=== PATIENT | female | born 1980 | race Caucasian/White ===

== ENCOUNTER 2024-12-17 09:58 | Emergency (ER) | payer OTHER, SELFPAY ==
[2024-12-17 10:07] VITALS: BP 105/81; PULSE 75; RESP 16; TEMP 36.1; O2SAT 98
--- NOTE | 2024-12-17 10:07 | ED_ITS ---
HPI - Eye Problem General Chief complaint: Eye Problems Stated complaint: left eye irritation Time Seen by Provider: 12/17/24 10:10 Source: patient Mode of arrival: ambulatory Limitations: no limitations History of Present Illness HPI Narrative: 44 y/o female presented for c/o left eye redness and pain. Onset 399. Says she removed her contact lenses at that time due to bilateral eye pressure from nasal congestion. Since then the eye continued to have drainage which started clear and turned green and yellow. Endorses mild light sensitivity and vision is blurry. Pt wears contact lenses overnight, which are dailies, but she had them in for 4 days. Denies eye injury or FB. MD chief complaint: eye pain Related Data Home Medications ?Medication ?Instructions ?Recorded ?Confirmed ?Last Taken ?Type bupropion HCl 300 mg 24 hr tablet, 300 mg PO QAM 09/09/23 12/17/24 Unknown History extended release (Wellbutrin XL) clonazepam 1 mg tablet 1 mg PO QHS 09/09/23 12/17/24 Unknown History lamotrigine 150 mg tablet 150 mg PO DAILY 09/09/23 12/17/24 Unknown History (Lamictal) lisdexamfetamine 50 mg capsule 50 mg PO DAILY 09/09/23 12/17/24 Unknown History (Vyvanse) spironolactone 100 mg tablet 100 mg PO BID 09/09/23 12/17/24 Unknown History aripiprazole 2 mg tablet (Abilify) 2 mg PO DAILY 06/06/24 12/17/24 Unknown History minoxidil 2.5 mg tablet 5 mg PO DAILY 06/06/24 12/17/24 Unknown History duloxetine 60 mg capsule,delayed mg PO 12/17/24 Unknown History release iud 12/17/24 Unknown History multivitamin 12/17/24 Unknown History propranolol 20 mg tablet mg 12/17/24 Unknown History Allergies Allergy/AdvReac Type Severity Reaction Status Date / Time iodine Allergy Mild Hives / Verified 12/17/24 10:02 Red Face codeine AdvReac Mild Nausea and Verified 12/17/24 10:02 Vomiting Review of Systems Review of Systems: CONSTITUTIONAL: Denies body aches, fever, chills EYES:Endorses redness and pain to left eye; Denies visual changes, FB sensation ENT: Denies rhinorrhea, congestion, sore throat, or otalgia. CARDIOVASCULAR: Denies chest pain, palpitations RESPIRATORY: Denies cough or dyspnea. GASTROINTESTINAL: Denies abdominal pain, nausea, vomiting, or diarrhea. SKIN: Denies rash, itching, or wounds. MUSCULOSKELETAL: Denies back pain, joint pain, or myalgia. NEUROLOGIC: Denies headache, numbness, tingling, or weakness. All systems reviewed & are unremarkable except as noted in HPI and below PMFSH Past Medical History Medical History History of stomach ulcers Disorder of thyroid Seizures BLAZE on CPAP Hyperlipidemia, unspecified Migraine Headache Chronic GERD Anxiety Asthma Allergies Surgical History Surgical History H/O foot surgery H/O: History of tonsillectomy Family History Family History Father History of ETOH abuse Asthma Lung cancer Depression Anxiety Mother History of ETOH abuse Asthma Diabetes mellitus Depression Anxiety Disorder of thyroid Sibling History of ETOH abuse Breast cancer Grandparent History of ETOH abuse Heart disease Cerebrovascular accident Grandparent History of ETOH abuse Heart disease Cerebrovascular accident Social History Social History Smoking status: Never smoker Alcohol use details: Does not drink Substance use type: does not use Do You Feel Safe in your Home?: Yes Lack of Transportation: No Lack of Food: Never True Current Housing: I Have Housing Concerned About Future Housing: No Difficulty Paying Gas/Electric Bills: No Difficulty Paying for Meds: No Currently Unemployed: No Education: Bachelor's Degree Difficulty w/ Childcare or Family Care: No Living arrangements: with family 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 Please see nursing chart for further information. There is no relevant family history pertinent to the presenting complaint Exam Narrative: GENERAL: Well-appearing HEAD: Normocephalic, atraumatic. EYES: Left conjunctival injection, mild eye lid swelling and drainage. PERRLA, EOMI. Lid eversion shows no FB. No corneal abrasion or ulcer with miller lamp exam. ENT: Mucous membranes pink and moist. No rhinorrhea. TMs normal bilaterally. Throat normal. Uvula midline. SKIN: Warm, dry, no rash. Normal skin turgor. NEURO: No focal deficits. Alert and oriented x3 PSYCH: Normal affect. Course Course Emergency Course: Patient is aware of diagnosis, understands and agrees to treatment plan. Anticipatory guidance given. Patient agrees to follow-up as directed and is aware of reasons to seek care at the emergency department. Portions of this record may have been created with voice recognition software Level of Care: Express Care Visit Procedures FB Removal Eye Foreign Body #1: Location: eye (L) Topical anesthetic used: tetracaine Evidence of corneal penetration: No Technique: irrigation and eye wash bottle Procedure performed under: other (miller lamp ) Patient tolerated procedure: well and no complications Foreign Body Removal Narrative: left Eye was anesthetized with 1 drop of tetracaine and anesthesia was achieved. Lid was everted and examined for foreign body. No foreign body, corneal abrasion, or ulceration identified with Miller lamp. The eye was flushed with eye wash. Pt tolerated procedure well. MDM - Eye Problem MDM Narrative Medical decision making narrative: Discussed physical exam findings c/w bacterial conjunctivitis; no corneal abrasion or ulcer on exam. Advised supportive measures and signs/symptoms to go to the ER. Pt is appropriate for outpt treatment and f/u. Differential Diagnosis Differential diagnosis: Likely corneal abrasion, conjunctivitis, acute iritis, periorbital cellulitis, corneal ulcer and other Discharge Plan Discharge Clinical Impression: Bacterial conjunctivitis Patient Disposition: Home Condition: Stable Instructions: Antibiotic Form, Conjunctivitis (ED) Additional Instructions: Avoid touching or rubbing your eye. Use over the counter lubricating eye drops as needed for irritation Use a warm or cool washcloth on your eye for comfort Use eyedrops as directed - you are contagious for 24 hours after starting the antibiotic Practice good handwashing and hygiene to prevent spread of infection Do not wear the contact lenses. Use a new pair after the infection is resolved. Use new makeup, lashes etc. You may take Tylenol or ibuprofen for pain Recommend Flonase spray and Zyrtec (or Claritin/Monica) over the counter Cough syrup may cause drowsiness; avoid driving or take it at night time. Tylenol 1000mg every 8 hours as needed for pain Symptomatic treatment includes: rest, fluids, and increase humidity of the air at home. Follow-up with filler shredder helper if condition is not improving in 2 days. Go to the emergency room if you have severe pain or pressure behind your eye, difficulty seeing, or other severe symptoms Patient Language: Marshallese Prescriptions: New ofloxacin 0.3 % drops See Rx Instructions .ROUTE .COMPLEX Qty: 10 0RF Rx Instructions: put 2 drops into left every 4 hours for 2 days, then 2 drops 4 times a day days 3-7 amoxicillin-pot clavulanate 875-125 mg tablet 1 tablet PO Q12H 7 Days Qty: 14 0RF No Action propranolol 20 mg tablet duloxetine 60 mg capsule,delayed release(DR/EC) PO iud multivitamin lamotrigine [Lamictal] 150 mg tablet 150 mg PO DAILY bupropion HCl [Wellbutrin XL] 300 mg tablet extended release 24 hr 300 mg PO QAM spironolactone 100 mg tablet 100 mg PO BID lisdexamfetamine [Vyvanse] 50 mg capsule 50 mg PO DAILY clonazepam 1 mg tablet 1 mg PO QHS Rx Instructions: administer 30 minutes before bedtime aripiprazole [Abilify] 2 mg tablet 2 mg PO DAILY metformin 500 mg tablet extended release 24 hr 500 mg PO DAILY Qty: 90 1RF minoxidil 2.5 mg tablet 5 mg PO DAILY albuterol sulfate [Ventolin HFA] 90 mcg/actuation HFA aerosol inhaler 1 inh inhalation Q4H PRN (Reason: shortness of breath or wheezing) Qty: 8.5 1RF levothyroxine 175 mcg tablet See Rx Instructions .ROUTE .COMPLEX Qty: 90 3RF Dose Instruction: TAKE 1 TABLET BY MOUTH EVERY DAY Rx Instructions: TAKE 1 TABLET BY MOUTH EVERY DAY Zepbound 2.5 mg/0.5 mL pen injector 2.5 mg subcut WEEKLY Qty: 2 0RF Rx Instructions: for 4 weeks Follow-up/Referrals: Consuelo Vides APRN [Primary Care Provider] - Time of Disposition: 10:40
== END 2024-12-17 10:40 | disposition home or self-care (01) ==
PROVIDERS: Emergency Provider Nurse Practitioner Family; PCP Nurse Practitioner Adult Health
DX: H10.9 Unspecified conjunctivitis (principal); G40.909 Epilepsy, unspecified, not intractable, without status epilepticus; G47.33 Obstructive sleep apnea (adult) (pediatric); E78.5 Hyperlipidemia, unspecified; K21.9 Gastro-esophageal reflux disease without esophagitis; J45.909 Unspecified asthma, uncomplicated; F41.9 Anxiety disorder, unspecified
CPT/HCPCS: 99213; A9270; G0463

== ENCOUNTER 2025-06-19 18:11 | Emergency (ER) | payer OTHER, SELFPAY ==
[2025-06-19 18:18] VITALS: BP 112/81; PULSE 88; RESP 20; TEMP 36.4; O2SAT 97
--- NOTE | 2025-06-19 18:39 | ED.SKABFB ---
HPI - Skin/Abscess/Foreign Bdy General Chief complaint: Skin/Abscess/Foreign Body Stated complaint: moisture rash Time Seen by Provider: 06/19/25 18:40 Source: patient and RN notes reviewed Mode of arrival: ambulatory Limitations: no limitations History of Present Illness HPI narrative: 45-year-old female presents with concern for a rash under her abdominal fold. She reports she struggles with that area, she works hard to keep it dry. She usually uses powder. Reports she got a small rash that is now gotten much larger, is very itchy and is excoriated and irritated. She reports it has been there for 2 weeks. She has been using an [id number] treatment without relief MD complaint: rash Related Data Home Medications ?Medication ?Instructions ?Recorded ?Confirmed ?Last Taken ?Type bupropion HCl 300 mg 24 hr tablet, 300 mg PO QAM 09/09/23 12/17/24 Unknown History extended release (Wellbutrin XL) lamotrigine 150 mg tablet 150 mg PO DAILY 09/09/23 12/17/24 Unknown History (Lamictal) aripiprazole 2 mg tablet (Abilify) 2 mg PO DAILY 06/06/24 12/17/24 Unknown History duloxetine 60 mg capsule,delayed mg PO 12/17/24 Unknown History release iud 12/17/24 Unknown History multivitamin 12/17/24 Unknown History Allergies Allergy/AdvReac Type Severity Reaction Status Date / Time iodine Allergy Mild Hives / Verified 06/19/25 18:23 Red Face codeine AdvReac Mild Nausea and Verified 06/19/25 18:23 Vomiting Review of Systems Review of Systems: CONSTITUTIONAL: Denies malaise, chills, sweats, or fever. ENT: Denies rhinorrhea, congestion, swollen lips, swollen tongue SKIN: Reports itchy rash excoriated rash under her abdominal fold All systems reviewed & are unremarkable except as noted in HPI and below PMFSH Past Medical History Medical History History of stomach ulcers Disorder of thyroid Seizures BLAZE on CPAP Hyperlipidemia, unspecified Migraine Headache Chronic GERD Anxiety Asthma Allergies Surgical History Surgical History H/O foot surgery H/O: History of tonsillectomy Family History Family History Father History of ETOH abuse Asthma Lung cancer Depression Anxiety Mother History of ETOH abuse Asthma Diabetes mellitus Depression Anxiety Disorder of thyroid Sibling History of ETOH abuse Breast cancer Grandparent History of ETOH abuse Heart disease Cerebrovascular accident Grandparent History of ETOH abuse Heart disease Cerebrovascular accident Social History Social History Smoking status: Never smoker Alcohol use details: Does not drink Substance use type: does not use Lack of Transportation: No Lack of Food: Never True Current Housing: I Have Housing Concerned About Future Housing: No Difficulty Paying Gas/Electric Bills: No Difficulty Paying for Meds: No Currently Unemployed: No Education: Bachelor's Degree Difficulty w/ Childcare or Family Care: No Living arrangements: with family 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 There is no relevant family history pertinent to the presenting complaint Exam Narrative: GENERAL: Well-appearing, well-nourished, and in no acute distress. HEAD: Normocephalic, atraumatic. EYES: PERRLA, conjunctivae clear, and EOMI. ENT: Mucous membranes moist. Oropharynx without edema, erythema or lesions. NECK: Supple. No lymphadenopathy CHEST: Clear to auscultation. No respiratory distress. HEART: Regular rate and rhythm. SKIN: Warm, dry. Large patches of excoriated skin with satellite papules noted under the abdominal fold NEURO: Alert and oriented x3. PSYCH: Normal mood and affect Course Course Emergency Course: Patient is aware of diagnosis, understands and agrees to treatment plan. Anticipatory guidance given. Patient agrees to follow-up as directed and is aware of reasons to seek care at the emergency department. Portions of this record may have been created with voice recognition software Level of Care: Express Care Visit Vital Signs Vital signs: Vital Signs Temperature 97.5 F L 06/19/25 18:18 Pulse Rate 88 06/19/25 18:18 Respiratory Rate 20 06/19/25 18:18 Blood Pressure 112/81 06/19/25 18:18 Pulse Oximetry 97 06/19/25 18:18 Oxygen Delivery Room Air 06/19/25 18:18 Temperature 97.5 F L 06/19/25 18:18 Pulse Rate 88 06/19/25 18:18 Respiratory Rate 20 06/19/25 18:18 Blood Pressure 112/81 06/19/25 18:18 Pulse Oximetry 97 06/19/25 18:18 Oxygen Delivery Room Air 06/19/25 18:18 MDM Differential Diagnosis Differential Diagnosis: I evaluated this patient in the [facility] care. History is obtained from patient who is an independent historian and physical exam was performed.? Available medical records were reviewed. ? Exam findings and relevant testing show no acute concerns or changes; patient is non-toxic appearing and is in no distress. ? Does not appear at this time to be erythema multiforme, bullous, SJS, TEN; no evidence at this time to suggest RMSF, endocarditis or Lyme disease; patient looks well, nontoxic and is tolerating oral intake; no neurologic signs or symptoms; no headache, photophobia or neck pain; afebrile; appropriate for initial outpatient treatment; discussed the importance of follow-up, patient agrees; question, viral exanthema, contact dermatitis, allergic dermatitis, eczema, urticaria, tinea. No soft palate or uvula edema, no tongue, lip edema or other mucosal involvement, no respiratory compromise, no stridor, no wheezing, no wheezing, no history of syncope, no hypotension, no nausea, vomiting, or diarrhea. Instructed patient to go to nearest ER immediately for any worsening symptoms including but not limited to: fever, spreading rash, pain, sore throat, headache, dizziness, chest pain, trouble breathing, or any symptoms concerning to the patient. Differential diagnosis and treatment plan were discussed with the patient. Patient agrees with discussion and after shared medical decision making agrees with plan of care. All questions were answered to the patient's satisfaction. Patient is appropriate for outpatient treatment and follow-up. Discharge Plan Discharge Clinical Impression: Skin yeast infection Patient Disposition: Home Condition: Stable Instructions: Antibiotic Form, Skin Yeast Infection (ED) Additional Instructions: Wash the area with gentle soap and water only. Pat dry thoroughly Use skin cream as prescribed Avoid scratching when possible to prevent worsening of the condition and disruption of the skin that could lead to bacterial infection To relieve itching, place a cool washcloth or some ice over the area that itches, rather than scratching Follow up with primary care provider or seek ER if you have trouble breathing, become hoarse, or start wheezing, develop belly cramps, vomiting or feel dizzy. Patient Language: Bengali Prescriptions: New fluconazole 150 mg tablet 150 mg PO Q48H 3 Days Qty: 2 0RF Rx Instructions: take one dose now, and a second dose if symptoms remain in 48 hours clotrimazole-betamethasone 1-0.05 % cream 1 applic TOPICAL BID 28 Days Qty: 45 1RF No Action duloxetine 60 mg capsule,delayed release(DR/EC) PO iud multivitamin lamotrigine [Lamictal] 150 mg tablet 150 mg PO DAILY bupropion HCl [Wellbutrin XL] 300 mg tablet extended release 24 hr 300 mg PO QAM aripiprazole [Abilify] 2 mg tablet 2 mg PO DAILY metformin 500 mg tablet extended release 24 hr 500 mg PO DAILY Qty: 90 1RF albuterol sulfate [Ventolin HFA] 90 mcg/actuation HFA aerosol inhaler 1 inh inhalation Q4H PRN (Reason: shortness of breath or wheezing) Qty: 8.5 1RF levothyroxine 175 mcg tablet See Rx Instructions .ROUTE .COMPLEX Qty: 90 3RF Dose Instruction: TAKE 1 TABLET BY MOUTH EVERY DAY Rx Instructions: TAKE 1 TABLET BY MOUTH EVERY DAY Wegovy 2.4 mg/0.75 mL pen injector 2.4 mg subcut WEEKLY Qty: 3 3RF spironolactone 100 mg tablet 100 mg PO BID Qty: 180 3RF minoxidil 2.5 mg tablet 5 mg PO DAILY Qty: 90 3RF Follow-up/Referrals: Consuelo Vides APRN [Primary Care Provider, [facility]] Time of Disposition: 18:51
--- OUTSIDE RECORDS SUMMARY | 2025-06-19 19:14 | XMS_ITS | Clinical Summary ---
Author Organization [facility] [address] Address [address] [place] [address] Care Team Providers Care Room Worker Name Role Phone Consuelo Vides Primary Care Provider Allergies No known active allergies Medications ARIPiprazole (ABILIFY) 2 mg tablet Take 1 Tablet (2 mg) by mouth daily in the morning for depression. 30 Tablet 12/01/2024 12:19 PM CDT 5 Active buPROPion HCL (WELLBUTRIN XL) 300 mg Extended Release 24 hour tablet Take 1 Tablet (300 mg) by mouth daily in the morning. 30 Tablet 2 12/01/2024 12:19 PM CDT 5 Active DULoxetine (Cymbalta) 60 mg Capsule, Delayed Release(E.C.) Take 1 Capsule (60 mg) by mouth daily in the morning for depression. 30 Capsule 1 12/01/2024 12:19 PM CDT 5 Active lamoTRIgine (LaMICtal) 150 mg tablet Take 1 Tablet (150 mg) by mouth 2 times daily with meals. 60 Tablet 2 5 Active propranoloL (INDERAL) 20 mg tablet Take 1 Tablet (20 mg) by mouth 2 times daily with meals for anxiety. 60 Tablet 2 12/01/2024 12:19 PM CDT 5 Active buPROPion HCL (WELLBUTRIN XL) 300 mg Extended Release 24 hour tablet Take 1 Tablet (300 mg) by mouth daily in the morning. 30 Tablet 2 5 Active DULoxetine (Cymbalta) 60 mg Capsule, Delayed Release(E.C.) Take 1 Capsule (60 mg) by mouth daily in the morning for depression. 30 Capsule 1 5 Active lamoTRIgine (LaMICtal) 150 mg tablet Take 1 Tablet (150 mg) by mouth 2 times daily with meals. 60 Tablet 2 12/05/2024 1:02 PM CDT 5 Active propranoloL (INDERAL) 20 mg tablet Take 1 Tablet (20 mg) by mouth 2 times daily with meals for anxiety. 60 Tablet 2 5 Active ARIPiprazole (ABILIFY) 2 mg tablet Take 1 Tablet (2 mg) by mouth daily in the morning for depression. 30 Tablet 5 Active clonazePAM (KlonoPIN) 1 mg tablet Take 1 Tablet (1 mg) by mouth 3 times daily with meals. 90 Tablet 2 12/05/2024 1:02 PM CDT 5 Active ARIPiprazole (ABILIFY) 2 mg tablet Take 1 Tablet (2 mg) by mouth daily in the morning for depression. 30 Tablet 5 Active propranoloL (INDERAL) 20 mg tablet Take 1 Tablet (20 mg) by mouth 2 times daily for anxiety. 60 Tablet 2 5 Active DULoxetine (Cymbalta) 60 mg Capsule, Delayed Release(E.C.) Take 1 Capsule (60 mg) by mouth daily in the morning for depression. 30 Capsule 1 5 Active buPROPion HCL (WELLBUTRIN XL) 300 mg Extended Release 24 hour tablet Take 1 Tablet (300 mg) by mouth daily in the morning. 30 Tablet 2 5 Active lisdexamfetamin e (VYVANSE) 50 mg capsule Take 1 Capsule (50 mg) by mouth daily in the morning for ADHD. Max Daily Amount: 50 mg 30 Capsule 5 Active ARIPiprazole (ABILIFY) 2 mg tablet Take 1 Tablet (2 mg) by mouth daily in the morning for depression. 30 Tablet 5 Active propranoloL (INDERAL) 20 mg tablet Take 1 Tablet (20 mg) by mouth 2 times daily with meals for anxiety 60 Tablet 2 5 Active lamoTRIgine (LaMICtal) 150 mg tablet Take 1 Tablet (150 mg) by mouth 2 times daily with meals. 60 Tablet 2 5 Active DULoxetine (Cymbalta) 60 mg Capsule, Delayed Release(E.C.) Take 1 Capsule (60 mg) by mouth daily in the morning for depression 30 Capsule 1 5 Active lisdexamfetamin e (VYVANSE) 50 mg capsule Take 1 Capsule (50 mg) by mouth daily in the morning. Max Daily Amount: 50 mg 30 Capsule Active buPROPion HCL (WELLBUTRIN XL) 300 mg Extended Release 24 hour tablet Take 1 Tablet (300 mg) by mouth daily in the morning. 30 Tablet 2 Active clonazePAM (KlonoPIN) 1 mg tablet Take 1 Tablet (1 mg) by mouth 3 times daily with meals. 90 Tablet 2 Active Encounters Date Type Department Care Team Description 06/12/2025 External Device Data [facility]CTION Provider, Abstract 05/16/2025 External Device Data [facility] Provider, Abstract 05/09/2025 External Device Data [facility] Provider, Abstract 05/01/2025 External Device Data [facility] Provider, Abstract from Last 3 Months Immunizations Immunization Administration Dates Next Due Influenza Seasonal Unspecified Formulation IM Social History Tobacco Use Types Packs/Day Years Used Date Smoking Tobacco: Never Assessed Comments Unknown Sex and Gender Information Value Date Recorded Sex Assigned at Female 03/16/2024 4:30 PM CDT Legal Sex Female 10:24 AM CDT Gender Identity Not on file Sexual Orientation Not on file Plan of Treatment Health Maintenance Due Date Last Done Comments DTAP/TDAP/TD VACCINES (1 - Tdap) 02/24/1999 HEPATITIS B VACCINES (1 of 3 - 19+ 3-dose series) 02/09 HPV/Cotest (21-29) 02/24/2001 CERVICAL CANCER SCREENING 02/24/2010 HPV/Cotest (30-65) 02/24/2010 PAP SMEAR 02/24/2010 BREAST CANCER SCREENING 2020 INFLUENZA VACCINE (#1) 2025 10/07/2023 COLORECTAL SCREENING 02/24/2025 Colorectal Cancer Screening 02/24/2025 FIT-DNA Q 3 years 02/24/2025 FIT/FOBT Q 1 year 02/24/2025 Flex Sig/CT Colonography Q 5 years 02/24/2025 HPV VACCINES (No Doses Required) Completed Insurance [employer] OPEN ACCESS RX [employer] (INTERNAL) [facility] [employer] Express Care Teams Room Worker Relationship Specialty Start Date End Date Consuelo Vides ANP [address] [id number] PCP - General Nurse Practitioner Adult Health 11/22/19
--- OUTSIDE RECORDS SUMMARY | 2025-06-19 19:14 | XMS_ITS | Clinical Summary ---
Author Organization [facility] Address [address] [place] [address] Care Team Providers Care Material Worker Name Role Phone Consuelo Vides NP Primary Care Provider [phone] Betzy Gutierrez MD Unavailable [phone] Allergies Active Allergy Reactions Criticality Noted Date Comments Codeine Vomiting Low Iodine Hives Medium Reaction: HIVES, Medications lamoTRIgine (LaMICtal) 200 mg tablet Take 1 tablet (200 mg total) by mouth 2 (two) times a day Takes 150mg bid Active buPROPion SR (WELLBUTRIN SR) 150 mg 12 hr tablet Take 2 tablets (300 mg total) by mouth nightly Active clonazePAM (KlonoPIN) 2 mg tablet 1 tablet (2 mg total) 2 (two) times a day 2 0 Active Vyvanse 40 mg capsule 1 capsule (40 mg total) Twice weekly, prior to work 0 0 Active multivitamin (MULTI-DAY ORAL) Take by mouth daily Active levothyroxine (SYNTHROID) 175 mcg tablet Take 150 mcg by mouth daily Active albuterol HFA (PROVENTIL HFA,VENTOLIN HFA,PROAIR HFA) 90 mcg/actuation inhaler albuterol sulfate HFA 90 mcg/actuation aerosol inhaler INHALE 2 PUFFS BY MOUTH EVERY 4 HOURS NEEDED FOR 30 DAYS Active escitalopram (LEXAPRO) 10 mg tablet Take 2 tablets (20 mg total) by mouth daily 2 Active montelukast (SINGULAIR) 10 mg tablet montelukast 10 mg tablet TAKE 1 TABLET BY MOUTH ONCE DAILY IN THE EVENING Active propranoloL (INDERAL) 10 mg tablet Take 2 tablets (20 mg total) by mouth 2 (two) times a day 2 Active spironolactone (ALDACTONE) 100 mg tablet Take 1 tablet (100 mg total) by mouth 2 (two) times a day Active minoxidil (ROGAINE TOP) Take 2.5 mg by mouth nightly Active aspirin 81 mg chewable tablet Take 1 tablet (81 mg total) by mouth daily 30 tablet 3 Active atorvastatin (LIPITOR) 40 mg tablet Take 1 tablet (40 mg total) by mouth nightly 30 tablet 3 Active levoFLOXacin (LEVAQUIN) 500 mg tablet Take 1 tablet (500 mg total) by mouth daily 10 tablet 5 Active ondansetron (ZOFRAN) 4 mg tablet Take 1 tablet (4 mg total) by mouth every 4 (four) hours as needed for nausea or vomiting for up to 15 doses 15 tablet [address] (PROTONIX) 20 mg EC tablet Take 1 tablet (20 mg total) by mouth daily 20 tablet 5 03/09/20 26 Active HYDROcodone-vamshi taminophen (NORCO) 5-325 mg per tabletIndicatio ns:Pain Take 1 tablet by mouth every 6 (six) hours as needed for pain for up to 6 doses 6 tablet 5 Active Active Problems Problem Noted Date Diagnosed Date Chest pain 02/19/2023 Acute chest pain 02/17/2023 Class 3 severe obesity due t o excess calories with serious comorbidity and body mass index (BMI) of 50.0 to 59.9 in adult 02/17/2023 Abnormal nuclear stress test 02/17/2023 Bilateral lower abdominal cramping 10/10/2021 Acute diarrhea 10/10/2021 Full incontinence of feces 10/10/2021 BMI 50.0-59.9, adult 10/10/2021 Hepatosplenomegaly 10/10/2021 Change in bowel habits 10/10/2021 Weight loss 10/10/2021 Anxiety disorder 09/30/2021 Asthma 09/30/2021 Depressive disorder 09/30/2021 Hyperglycemia 09/30/2021 Hyperlipidemia 09/30/2021 Hypothyroidism 09/30/2021 Obesity 09/30/2021 Primary osteoarthritis of left knee 06/16/2018 Immunizations Immunization Administration Dates Next Due Hep A, Adult 05/27/2009,10/30/2008 Hep B Vaccine 05/27/2009,01/04/2009,10/30/2008 Influenza, Quadrivalent, Spl it, Preservative Free, Intramuscular 04/10/2020 Influenza, Trivalent, IM (MDV) 6,04/25/2014,04/14/2013,05/31 Influenza, Unspecified 04/11/2018 MMR 10/30/2008,06/17/1981 Polio, Unspecified 10/10/1984, 3,03/12/1981,01/09 Rubella 10/30/2008 TD Preservative Free 03/01/1995 Tdap 10/30/2008 Varicella 07/31/2015,10/30/2008 Medical History Medical History Date Comments Hypothyroid Anxiety Depression Sleep apnea Asthma Family History Medical History Relation Name Comments Liver cancer Father Heart disease Maternal Grandfather Heart disease Maternal Grandmother Diabetes Mother Fibromyalgia Mother Heart disease Mother Hypothyroidism Mother Heart failure Paternal Grandmother Relation Name Status Comments Father Maternal Grandfather Maternal Grandmother Mother Paternal Grandmother Social History Tobacco Use Types Packs/Day Years Used Date Smoking Tobacco: Never Smokeless Tobacco: Never Tobacco Cessation:Counseling Given: Not Answered Social Connection and Isolation Panel Answer Date Recorded In a typical week, how many times do you talk on the phone with family, friends, or neighbors? Three times a week 02/18/2023 How often do you get togethe r with friends or relatives? Three times a week 02/18/2023 How often do you attend chur or buddhist services? Never 02/18/2023 Do you belong to any clubs o r organizations such as buddhism groups, unions, fraternal or athletic groups, or school groups? No 02/18/2023 How often do you attend meet ings of the clubs or organizations you belong to? Never 02/18/2023 Are you , , di vorced, , never , or living with a partner? 02/18/2023 AUDIT-C Answer Date Recorded Q1: How often do you have a drink containing alc ohol? Never 10/10/2021 Average Number of Drinks Not on file 022 Q3: How often do you have si x or more drinks on one occasion? Never 10/10/2021 Overall Financial Resource Strain (CARDIA) Answe r Date Recorded How hard is it for you to pa y for the very basics like food, housing, medical care, and heating? Not hard at all 02/18/2023 Hunger Vital Sign Answer Date Recorded Within the past 12 months, y ou worried that your food would run out before you got the money to buy more. Never true 02/19/20 23 Within the past 12 months, t he food you bought just didn't last and you didn't have money to get more. Never true 02/18/2023 PRAPARE - Transportation Answer Date Re corded In the past 12 months, has l ack of transportation kept you from medical appointments or from getting medications? No 02/09 In the past 12 months, has l ack of transportation kept you from meetings, work, or from getting things needed for daily living? No 02/18/2023 Housing Stability Vital Sign Answer Ronni e Recorded In the last 12 months, was t here a time when you were not able to pay the mortgage or rent on time? No 02/18/2023 In the last 12 months, how many places have you lived? 1 02/18/2023 In the last 12 months, was t here a time when you did not have a steady place to sleep or slept in a snf (including now)? No 02/18/2023 Personal Safety Answer Date Recorded Have you ever been in or are you currently in a harmful physical or emotional relationship or is someone making you feel afraid or unsafe? Denies 03/09/2025 Education Answer Date Recorded What is the highest level of school you have completed or the highest degree you have received? 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 Gender Identity Not on file Sexual Orientation Not on file Last Filed Vital Signs Vital Sign Reading Time Taken Comments Blood Pressure 98/56 03/09/2025 1:15 PM CDT Pulse 78 03/09/2025 1:15 PM CDT Temperature 36.4 C (97.5 F) 03/09/2025 5:20 AM CDT Respiratory Rate 18 03/09/2025 5:20 AM CDT Oxygen Saturation 92% 03/09/2025 1:15 PM CDT Inhaled Oxygen Concentration - - Weight 124.3 kg (274 lb) 03/09/2025 5:26 AM CDT Height 154.9 cm (5' 1) 03/09/2025 5:26 AM CDT Body Mass Index 51.77 03/09/2025 5:26 AM CDT Plan of Treatment Health Maintenance Due Date Last Done Comments Breast Cancer Screening-Mammogram 1980 Cervical Cancer Screening 1980 Colon Cancer Screening-Colonoscopy 1980 Depression Screening 1980 Regular Well Visit/Exam 18-64 02/24/1998 Pneumococcal vaccine <65 (1 of 2 - PCV) 02/24/1999 HPV Vaccines (1 - 3-dose SCD M series) 02/24/2007 DTaP/Tdap/Td Vaccine (2 - Td or Tdap) 10/30/2018 10/30/2008, 03/01/1995 Influenza Vaccine (#1) 2025 4, 05/19/2022, 06/24/2021, Additional history exists Hepatitis B Screening Completed 05/27/2009 , 01/04/2009, 10/30/2008 Varicella Vaccines Completed 07/31/2015, 10/30/2008 Hepatitis C Screening Completed 04/27/2024 Procedures Procedure Name Priority Date/Time Associated Diagnosis Comments HEPATITIS C ANTIBODY Routine 04/27/2024 3:15 PM CDT from Last 3 Months or Most Recently Relevant to Health Maintenance Results * Hepatitis C antibody Blood (04/27/2024 3:15 PM CDT) Hep C Ab Nonreactive Nonreactive Comment:Antibodies to HCV no t detected. Does NOT exclude the possibility of recent exposure to HCV. Current interpretive data was last revised on 22 Blood 04/27/2024 3:15 PM CDT 04/27/2024 7:12 PM CDT us Milagro Lopez MD PhD LAB MICROBIOLOGY - GENERAL OR DERABLES Final Result [facility] Department [place] [address] from Last 3 Months or Most Recently Relevant to Health Maintenance Insurance [facility] [employer] Address: [address] [place] [address] [facility] Advance Directives For more information, please contact: [phone] * Full Code (Latest Code Status on File) Date Activated Date Inactivated Comments 02/17/2023 6:26 PM 02/19/2023 10:07 PM Care Teams Material Worker Relationship Specialty Start Date End Date oCnsuelo Vides NP PCP - General 05/16/17 Betzy Gutierrez MD Consulting Physician Cardiology 02/19/23
--- OUTSIDE RECORDS SUMMARY | 2025-06-19 19:14 | XMS_ITS | Clinical Summary ---
Author Organization [facility] Address [address] [facility] [employer] [place] [address] Care Team Providers Care Housing Counselor Name Role Phone Unavailable Primary Care Provider Unavailabl e Medications molnupiravir (Lagevrio, EUA,) 200 mg capsule 4 capsule by mouth twice a day for 5 day - 40 0 06/09/2023 Active oseltamivir (Tamiflu) 75 MG capsule 1 capsule by mouth twice a day for 5 day - 10 0 06/09/2023 Active Social History Tobacco Use Types Packs/Day Years Used Date Smoking Tobacco: Never Assessed Comments Unknown Sex and Gender Information Value Date Recorded Sex Assigned at Not on file Legal Sex Female 1:47 PM EST Gender Identity Not on file Sexual Orientation Not on file Plan of Treatment Not on file Medical Devices Not on file
--- OUTSIDE RECORDS SUMMARY | 2025-06-19 19:14 | XMS_ITS | Clinical Summary ---
Author Organization [facility] Address [address] [place] [address] Care Team Providers Care Purification Operator Name Role Phone Anthony Silvestre MD Unavailable [phone] [facility],non-owned Affiliates and Associated Physician Practices is amultiple site organization consisting of ambulatory clinics and hospital sitesin [place], [place], [place] and [place]. This disclosure is being madepursuant to the Care Everywhere program and may not contain all information available regarding this patient. Last updated 18.[facility] Allergies Active Allergy Reactions Criticality Noted Date Comments Codeine Nausea and/or Vomiting 01/03/2019 Iodine Urticaria Medium 04/19/2013 With IVP Medications * Be aware that medications may not be up to date on this document. Alwaysverify current medications with the patient. levothyroxine (SYNTHROID) 175 MCG tablet Take 175 mcg by mouth once daily. Active buPROPion SR 12hr (WELLBUTRIN-SR) 150 MG tablet Take 150 mg by mouth at bedtime Active lisdexamfetamin e (VYVANSE) 50 MG capsuleIndicati ons:patient taking 3 times weekly Take 50 mg by mouth every morning Reasons: patient taking 3 times weekly Active lamoTRIgine (LAMICTAL) 200 MG tablet Take 400 mg by mouth once daily Active PRENAT FEPOLY-FEHEMPO- FA-DHA PO Take by mouth once daily Active clonazePAM (KLONOPIN) 1 MG tablet Take 1 mg by mouth 2 times daily Active Active Problems Problem Noted Date Diagnosed Date Primary osteoarthritis of left knee 06/16/2018 Immunizations Immunization Administration Dates Next Due INFLUENZA VACCINE, TRIV. (AF LURIA, FLUZONE TRIVALENT; 6MO+) (IIV3) 03/12/2016,04/25/2014,04/14/2013,2008 HEP A VACCINE, ADULT 05/27/2009,10/30/2008 HEP B VACCINE, ADULT 3 DOSE 05/27/2009, 9,10/30/2008 INFLUENZA VACCINE 04/11/2018 INFLUENZA VACCINE, QUADR. (F LUZONE; FLULAVAL; FLUARIX; AFLURIA QUADRIVALENT; 6MO+), 0.5 ML (IIV4) 04/10/2020 MMR 10/30/2008,06/17/1981 POLIO,HISTORIC VACCINE 10/10/1984,1982,03/12/1981,1980 TD (ADULT), 5 LF TETANUS TOX OID, ADSORBED, PF 03/01/1995 TDAP (7yrs+) 10/30/2008 VARICELLA 07/31/2015,10/30/2008 Family History Medical History Relation Name Comments Cancer - Breast half-sister <50 yo at on set Relation Name Status Comments half-sister Social History Tobacco Use Types Packs/Day Years Used Date Smoking Tobacco: Never Smokeless Tobacco: Never Alcohol Use Standard Drinks/Week Comments No 0 (1 standard drink = 0.6 oz pur e alcohol) rarely Comments No Sex and Gender Information Value Date Recorded Sex Assigned at Female 09/12/2023 10:43 PM WAREHOUSE PACKAGING SUPERVISOR Legal Sex Female 5:33 AM WAREHOUSE PACKAGING SUPERVISOR Gender Identity Female 09/12/2023 10:43 PM WAREHOUSE PACKAGING SUPERVISOR Sexual Orientation Straight 09/12/2023 10 :43 PM WAREHOUSE PACKAGING SUPERVISOR Last Filed Vital Signs Vital Sign Reading Time Taken Comments Blood Pressure 112/54 03/14/2019 9:55 AM CDT Pulse 97 03/14/2019 9:55 AM CDT Temperature 36.1 C (97 F) 03/06/2019 8:56 AM CDT Respiratory Rate 18 03/06/2019 8:56 AM CDT Oxygen Saturation 98% 03/06/2019 8:56 AM CDT Inhaled Oxygen Concentration - - Weight 128.9 kg (284 lb 3.2 oz) 03/14/2019 9:55 AM CDT Height 154.9 cm (5' 1) 03/14/2019 9:55 AM CDT Body Mass Index 53.7 03/14/2019 9:55 AM CDT Plan of Treatment Health Maintenance Due Date Last Done Comments COLOGUARD (AGES 45-75) - COLON CA SCREENING 1980 COLON MONITORING 1980 COLONOSCOPY - COLON CA SCREENING 1980 CT COLONOGRAPHY - COLON CA SCREENING 1980 Colorectal Cancer Screening 1980 FIT - COLON CA SCREENING 1980 FLEX SIG - COLON CA SCREENING 1980 LIPID TESTING 1980 MAMMOGRAM 1980 HEPATITIS C SCREENING 02/20/1998 HPV VACCINE (1 - 3-dose SCDM series) 02/24/2007 DTAP/TDAP/TD VACCINES (3 - Td or Tdap) 10/30/2018 10/30/2008, 03/01/1995 PAP SMEAR 01/03/2022 01/03/2019 Cervical Cancer Screening 01/04/2024 PAP with HPV 01/04/2024 01/03/2019 DEPRESSION SCREENING 07/12/2024 COVID-19 VACCINE (3 - season) 2025 08/14/2020, 07/24/2020 INFLUENZA VACCINE (#1) 2025 0, 04/11/2018, 03/12/2016, Additional history exists ZOSTER VACCINE (1 of 2) 02/24/2030 HEPATITIS B VACCINE Completed 05/27/2009, 01/04/2009, 10/30/2008 HIV SCREENING Completed 01/03/2019 HIB VACCINE Aged Out No longer eligi ble based on patient's age to complete this topic MENINGOCOCCAL (Group B) VACCINE SHARED DECISION-MAKING Aged Out No longer eligible based on patient's age to complete this topic MENINGOCOCCAL GROUPS A/C/Y/W VACCINE Aged Out No longer eligible based on patient's age to complete this topic PNEUMOCOCCAL VACCINE Aged Out No long er eligible based on patient's age to complete this topic Procedures Procedure Name Priority Date/Time Associated Diagnosis Comments PAP IG LB CT+GC+TV+ HPV HR DNA Routine 01/03/2019 10:36 AM CDT Well woman exam with routine gynecological exam HIV-1 HIV-2 ANTIBODY + HIV P24 AG PANEL Routine 01/03/2019 10:29 AM CDT Well woman exam with routine gynecological exam from Last 3 Months or Most Recently Relevant to Health Maintenance Results * PAP IG LB CT+GC+TV+ HPV HR DNA (01/03/2019 10:36 AM CDT) Diagnosis [facility] ACCOUNT BILL Comment:NEGATIVE FOR INTRAEP ITHELIAL LESION OR MALIGNANCY. Specimen Adequacy [facility] ACCOUNT BILL Comment: Satisfactory for evaluation. Endocervical and/or squamous metaplastic cells (endocervical component) are present. Clinician Provided ICD10 [facility] ACCOUNT BILL Comment: Z01.419 N92.0 E66.01 R35.0 Performed by [facility] ACCOUNT BILL Comment:Ulysses Richardson totechnologist Comment . [facility] ACCOUNT BILL Note [facility] ACCOUNT BILL Comment: The Pap smear is a screening test designed to aid in the detection of premalignant and malignant conditions of the uterine cervix. It is not a diagnostic procedure and should not be used as the sole means of detecting cervical cancer. Both false-positive and false-negative reports do occur. . IGLBP CPT Code Automation [facility] ACCOUNT BILL Comment: This liquid based ThinPrep(R) pap test was screened with the use of an image guided system. Human papillomavirus High Risk Negative Negative [facility] ACCOUNT BILL Comment: This high-risk HPV test detects thirteen high-risk types (16/18/31/33/35/39/45/51/52/56/58/59/68) without differentiation. . Chlamydia trachomatis HAWK Negative Negative [facility] ACCOUNT BILL GC HAWK Negative Negative [facility] ACCOUNT BILL Trichomonas vaginalis by HAWK Negative Negative [facility] ACCOUNT BILL Pathology/Cytolog y PART OF UTERINE CERVIX / Unknown 01/03/2019 10:36 AM CDT 01/03/2019 Narrative [facility] ACCOUNT BILL - 01/05/2019 4:36 PM CDT Source.............Cervix LMP / Prev Treat...None No. of containers..01 ThinPrep Vial Resulting Agency Comment Lab Testing performed at: [facility] [id number] Roxana Knott MD LAB - PATHOLOGY/CYTOLOGY ORDE ANTHONY Final Result [facility] ACCOUNT BILL [address] [place] [address] * HIV-1 HIV-2 ANTIBODY + HIV P24 AG PANEL (01/03/2019 10:29 AM CDT) HIV Screen 4th Generation w Reflex Non Reactive Non Reactive [facility] ACCOUNT BILL Blood BLOOD SPECIMEN / Unknown 01/03/2019 10:29 AM CDT 01/03/2019 Narrative Resulting Agency Comment Lab Testing performed at: [facility] [address] [facility] [id number] Roxana Knott MD LAB - CHEMISTRY ORDERABLES Fi nal Result [facility] ACCOUNT BILL [address] [place] [address] from Last 3 Months or Most Recently Relevant to Health Maintenance Insurance [facility] Care Teams Purification Operator Relationship Specialty Start Date End Date Anthony Silvestre MD Orthopedic Surgery 06/07/18
--- OUTSIDE RECORDS SUMMARY | 2025-06-19 19:14 | XMS_ITS | Clinical Summary ---
Author Organization [facility] Address [address] [place] [address] Phone Care Team Providers Care Air Quality Technician Name Role Phone Peewee Consuelo Pam HONG Primary Care Provider [phone] Allergies Active Allergy Reactions Criticality Noted Date Comments Iodinated Contrast Media Hives 07/22/2023 Medications methylPREDNISol one (MEDROL DOSPACK) 4 MG Tablet Therapy Pack See product package insert for dosing schedule 21 Tablet Active Additional Information Patient not taking.Reported on 09/01/2023 promethazine-co deine (PHENERGAN with CODEINE) 6.25-10 MG/5ML SyrupIndication s:Cough Take 10 mL by mouth every 4 hours as needed for Cough. 180 mL Active Additional Information Patient not taking.Reported on 09/01/2023 cefUROXime (CEFTIN) 500 MG Tablet Take 500 mg by mouth 2 times daily. Active levothyroxine (SYNTHROID) 175 MCG Tablet Take 175 mcg by mouth daily. Active escitalopram (LEXAPRO) 20 MG Tablet Take 20 mg by mouth daily. Active aspirin EC 81 MG Tablet Delayed Response Take 81 mg by mouth daily. Active lamoTRIgine (LaMICtal) 150 MG Tablet Take 150 mg by mouth 2 times daily. Active spironolactone (ALDACTONE) 100 MG Tablet Take 100 mg by mouth 2 times daily. Active minoxidil (LONITEN) 2.5 MG Tablet Take 2.5 mg by mouth daily. Minoxidil 2.5 mg tablet po nightly Active propranolol (INDERAL) 20 MG Tablet Take 20 mg by mouth 2 times daily. Active clonazePAM (KlonoPIN) 1 MG Tablet Take 1 mg by mouth 2 times daily. Active buPROPion (Wellbutrin XL) 300 MG TABLET SR 24 HR XL tablet Take 300 mg by mouth nightly. Active Lisdexamfetamin e Dimesylate (Vyvanse) 50 MG Capsule Take 50 mg by mouth Daily as needed for Other (anxiety and depression). Active budesonide-form oterol fumarate (Symbicort) 160-4.5 MCG/ACT Aerosol take 2 Puffs by inhalation 2 times daily. Active albuterol 108 (90 Base) MCG/ACT Aerosol Solution take 2 Puffs by inhalation every 4 hours as needed. Active dicyclomine (BENTYL) 20 MG Tablet Take 1 Tablet by mouth every 6 hours as needed for Other. 30 Tablet Active Social History Tobacco Use Types Packs/Day Years Used Date Smoking Tobacco: Never Smokeless Tobacco: Never Tobacco Cessation:Counseling Given: Not Answered Alcohol Use Standard Drinks/Week Comments Never 0 (1 standard drink = 0.6 oz pur e alcohol) Comments Unknown Sex and Gender Information Value Date Recorded Sex Assigned at Female 07/22/2023 11:06 PM PARA OPERATOR Legal Sex Female 5:42 PM CDT Gender Identity Female 07/22/2023 11:06 PM PARA OPERATOR Sexual Orientation Not on file Last Filed Vital Signs Vital Sign Reading Time Taken Comments Blood Pressure 134/79 08/25/2024 1:30 PM PARA OPERATOR Pulse 66 08/25/2024 1:30 PM PARA OPERATOR Temperature 36.6 C (97.9 F) 08/25/2024 10:33 AM PARA OPERATOR Respiratory Rate 18 08/25/2024 1:30 PM PARA OPERATOR Oxygen Saturation 98% 08/25/2024 1:30 PM PARA OPERATOR Inhaled Oxygen Concentration - - Weight 129.4 kg (285 lb 4.4 oz) 025 10:33 AM PARA OPERATOR Height 154.9 cm (5' 1) 08/25/2024 10:3 3 AM PARA OPERATOR Body Mass Index 53.9 08/25/2024 10:33 AM PARA OPERATOR Plan of Treatment Health Maintenance Due Date Last Done Comments Hepatitis C Virus (HCV) Screening 1980 Mammogram 1980 Pap Smear 02/24/2001 Cervical Cancer Screening (CCS) 02/24/2010 HPV/Cotest 02/24/2010 Discussion re Starting/Frequency of Mammograms 2020 Cologuard 02/24/2025 Colonoscopy 02/24/2025 Colorectal Cancer Screening 02/24/2025 Immunochemical Fecal Occult Blood 02/24/2025 Influenza Immunization (#1) 2025 03/2 02/2024, 05/19/2022, 06/24/2021, Additional history exists SARS-COV-2 Immunization (2024- season) 2025 04/15/2021, 08/14/2020, 07/24/2020 Respiratory Syncytial Virus (RSV) Immunization (Adult) (1 - 1-dose 75+ series) 02/24/2055 DTaP/Tdap/Td Immunization Discontinued 10/30/2008, TdaP Immunization Completed 10/30/2008 Hepatitis B Immunization Completed 009, 01/04/2009, 10/30/2008 Varicella Immunization Discontinued 07/31/2015, 2008 Human Papillomavirus (HPV) Immunization (No Doses Required) Completed Meningococcal Immunization (ACWY) Aged Out No longer eligible based on patient's age to complete this topic Pneumococcal Immunization Combined Aged Out No longer eligible based on patient's age to complete this topic Rotavirus Immunization Aged Out No lo nger eligible based on patient's age to complete this topic Care Teams Air Quality Technician Relationship Specialty Start Date End Date Consuelo Vides APRN PCP - General Advanced Practice Nurse 07/22/23
== END 2025-06-19 18:55 | disposition home or self-care (01) ==
PROVIDERS: Emergency Provider Nurse Practitioner; PCP Nurse Practitioner Adult Health
DX: B37.2 Candidiasis of skin and nail (principal); G40.909 Epilepsy, unspecified, not intractable, without status epilepticus; E78.5 Hyperlipidemia, unspecified; K21.9 Gastro-esophageal reflux disease without esophagitis; J45.909 Unspecified asthma, uncomplicated; G47.33 Obstructive sleep apnea (adult) (pediatric); F41.9 Anxiety disorder, unspecified
CPT/HCPCS: 99213; G0463